=== PATIENT | male | born 1995 | race Caucasian/White ===

== ENCOUNTER 2020-10-15 20:06 | Emergency (ER) | payer OTHER ==
[~2020-10-15 20:06] MED LIST: AUGMENTIN500TAB PO; CORTISPORIN OTI10 ML AD; NO HOME MEDS
[2020-10-15] MEDS ORDERED: POTASSI19 PO (20:35)
[2020-10-15] MEDS ORDERED: VITAMI17 PO (20:35)
[2020-10-15 21:08] LABS: URINE BILIRUBIN - DIPSTICK NEGATIVE (NEGATIVE); URINE BLOOD DIPSTICK NEGATIVE (NEGATIVE); URINE COLOR YELLOW; URINE GLUCOSE - DIPSTICK NEGATIVE (NEGATIVE); URINE KETONE NEGATIVE (NEGATIVE); URINE LEUK ESTERASE NEGATIVE (NEGATIVE); URINE PROTEIN - DIPSTICK NEGATIVE (NEG-TRACE); URINE SPECIFIC GRAVITY >=1.030; URINE UROBILINOGEN - DIPSTICK 0.2 E.U./dL (0.2)
[2020-10-15 21:14] LABS: URINE NITRITE - DIPSTICK NEGATIVE (Negative)
[2020-10-15 21:23] LABS: ALBUMIN 4.8 g/dL (3.2-5.0); ALKALINE PHOSPHATASE 87 u/l (38-126); AMYLASE 64 u/l (30-110); ANION GAP 13 (6-22 (CALC)); BILIRUBIN, TOTAL 0.7 mg/dL (0.0-1.4); BUN 15 mg/dL (9-20); BUN/CREATININE RATIO 21 (12-20 (CALC)); CHLORIDE 102 mmol/l (95-108); CREATININE 0.7 mg/dL (0.7-1.3); GFR > 60 ML/MIN (>=60 (CALC)); GFR FOR AFR.AMER. > 60 ML/MIN (>=60 (CALC)); LIPASE 154 u/l (23-300); POTASSIUM 3.6 mmol/l (3.5-5.1); SGOT/AST 26 u/l (17-59); SODIUM 138 mmol/l (137-146); TOTAL PROTEIN 7.7 g/dL (6.3-8.2)
[2020-10-15 21:24] LABS: CARBON DIOXIDE 27 mmol/l (22-30)
[2020-10-15 21:26] LABS: IMMATURE GRANULOCYTES 0.4 % (0.0-5.0); MEAN CORPUSCULAR HGB 30.3 pG CALC (26.0-32.0); MEAN CORPUSCULAR HGB CONC 34.2 g/dL CAL (32.0-36.0); NEUT# 4.85 thou/uL (1.82-7.42); RED BLOOD COUNT 5.61 mill/uL (4.70-6.10); RED CELL DISTRI WIDTH 12.6 % (11.5-15.5)
[2020-10-15 21:29] LABS: HEMATOCRIT 49.7 % (39.0-50.0); MEAN CELL VOLUME 88.6 fL CALC (80.0-100.0)
[2020-10-15] MEDS ORDERED: NAPROXEN500 MG PO (22:59)
[2020-10-15 23:05] VITALS: BP 124/74
== END 2020-10-15 23:14 | disposition home or self-care (01) | DRG 392 ==
LOC: ED 20:06
PROVIDERS: Emergency Medicine
DX: R10.31 Right lower quadrant pain (principal); R10.32 Left lower quadrant pain; M79.10 Myalgia, unspecified site; E21.5 Disorder of parathyroid gland, unspecified; Z87.442 Personal history of urinary calculi
CPT/HCPCS: Q9967

== ENCOUNTER 2021-06-02 17:05 | Emergency (ER) | payer OTHER ==
[~2021-06-02] VITALS: Ht 170.2 cm; Wt 70.0 kg
[~2021-06-02 17:05] MED LIST changes: +AMOXICILLIN500 MG OR; +AMOXICILLIN500 MG PO; +LORTAB5 PO; +MIRALAX3350 NF PO; +NAPROXEN500 MG PO; +NO; +PERCOCET 5/325M1 TAB OR; +POTASSI19 PO; +VITAMI17 PO
[2021-06-02 18:36] VITALS: BP 125/74
== END 2021-06-02 18:42 | disposition home or self-care (01) | DRG 153 ==
LOC: ED 17:05
DX: J06.9 Acute upper respiratory infection, unspecified (principal); Z20.822 Contact with and (suspected) exposure to COVID-19

== ENCOUNTER 2022-01-16 22:52 | Emergency (ER) | payer OTHER ==
[~2022-01-16] VITALS: Ht 170.2 cm; Wt 77.0 kg
[2022-01-16 23:35] VITALS: BP 121/92
== END 2022-01-16 23:45 | disposition home or self-care (01) | DRG 605 ==
LOC: ED 22:52
DX: S61.212A Laceration without foreign body of right middle finger without damage to nail, initial encounter (principal); X58.XXXA Exposure to other specified factors, initial encounter

== ENCOUNTER 2022-04-16 02:33 | Emergency (ER) | payer OTHER ==
[~2022-04-16] VITALS: Ht 170.2 cm; Wt 84.0 kg
[2022-04-16 02:40] VITALS: BP 125/86
[2022-04-16 03:45] LABS: URINE BILIRUBIN - DIPSTICK NEGATIVE (NEGATIVE); URINE BLOOD DIPSTICK NEGATIVE (NEGATIVE); URINE COLOR YELLOW; URINE GLUCOSE - DIPSTICK NEGATIVE (NEGATIVE); URINE KETONE NEGATIVE (NEGATIVE); URINE LEUK ESTERASE NEGATIVE (NEGATIVE); URINE PROTEIN - DIPSTICK NEGATIVE (NEG-TRACE); URINE UROBILINOGEN - DIPSTICK 0.2 E.U./dL (0.2)
[2022-04-16 03:46] LABS: URINE NITRITE - DIPSTICK NEGATIVE (Negative)
[2022-04-16 03:46] LABS: HEMATOCRIT 46.1 % (39.0-50.0); IMMATURE GRANULOCYTES 0.1 % (0.0-5.0); MEAN CELL VOLUME 89.9 fL CALC (80.0-100.0); MEAN CORPUSCULAR HGB 31.2 pG CALC (26.0-32.0); MEAN CORPUSCULAR HGB CONC 34.7 g/dL CAL (32.0-36.0); NEUT# 4.17 thou/uL (1.82-7.42); RED BLOOD COUNT 5.13 mill/uL (4.70-6.10); RED CELL DISTRI WIDTH 12.8 % (11.5-15.5)
[2022-04-16 03:56] LABS: ALBUMIN 4.5 g/dL (3.2-5.0); ALKALINE PHOSPHATASE 104 u/l (38-126); ANION GAP 15 (6-22 (CALC)); BILIRUBIN, TOTAL 0.6 mg/dL (0.0-1.4); BUN 15 mg/dL (9-20); BUN/CREATININE RATIO 16 (12-20 (CALC)); CARBON DIOXIDE 27 mmol/l (22-30); CHLORIDE 105 mmol/l (95-108); CREATININE 0.9 mg/dL (0.7-1.3); GFR FOR AFR.AMER. > 60 ML/MIN (>=60 (CALC)); GFR OTHER RACES > 60 ML/MIN (>=60 (CALC)); SGOT/AST 31 u/l (17-59); SODIUM 142 mmol/l (137-146)
[2022-04-16 05:38] VITALS: BP 125/86
== END 2022-04-16 05:41 | disposition home or self-care (01) | DRG 392 ==
LOC: ED 02:33
PROVIDERS: Internal Medicine
DX: R10.9 Unspecified abdominal pain (principal); Z87.442 Personal history of urinary calculi

== ENCOUNTER 2022-11-25 15:29 | Emergency (ER) | payer OTHER ==
[~2022-11-25] VITALS: Ht 170.2 cm; Wt 77.1 kg
[2022-11-25] MEDS ORDERED: VITAMIN D-32000 UNI1 (16:12)
[2022-11-25 16:24] VITALS: BP 129/89
[2022-11-25 16:49] LABS: BASO% 0.7 % (0-3); EOS% 1.6 % (0-8); HEMOGLOBIN 17.8 g/dl (14.0-18.0); IMMATURE GRANULOCYTES 0.1 % (0.0-5.0); LYMPH% 21.6 % (15-41); MEAN CELL VOLUME 90.2 fL CALC (80.0-100.0); MEAN CORPUSCULAR HGB 30.7 pG CALC (26.0-32.0); MEAN CORPUSCULAR HGB CONC 34.1 g/dL CAL (32.0-36.0); MONO% 7.2 % (2-13); NEUT# 4.8 thou/uL (1.82-7.42); NEUT% 68.8 % (42-76); RED BLOOD COUNT 5.79 mill/uL (4.70-6.10); RED CELL DISTRI WIDTH 12.5 % (11.5-15.5)
[2022-11-25 16:50] LABS: URINE BILIRUBIN - DIPSTICK NEGATIVE (NEGATIVE); URINE BLOOD DIPSTICK NEGATIVE (NEGATIVE); URINE COLOR YELLOW; URINE GLUCOSE - DIPSTICK NEGATIVE (NEGATIVE); URINE KETONE NEGATIVE (NEGATIVE); URINE LEUK ESTERASE NEGATIVE (NEGATIVE); URINE PH 6.5 (4.5-8.0); URINE PROTEIN - DIPSTICK NEGATIVE (NEG-TRACE); URINE SPECIFIC GRAVITY 1.025; URINE UROBILINOGEN - DIPSTICK 0.2 E.U./dL (0.2)
[2022-11-25 16:51] LABS: URINE NITRITE - DIPSTICK NEGATIVE (Negative)
[2022-11-25 16:51] LABS: HEMATOCRIT 52.2 % (39.0-50.0)
[2022-11-25 16:58] LABS: ALKALINE PHOSPHATASE 77 u/l (38-126); ANION GAP 13 (6-22 (CALC)); BILIRUBIN, TOTAL 0.6 mg/dL (0.2-1.3); BUN 17 mg/dL (9-20); BUN/CREATININE RATIO 18 (12-20 (CALC)); CARBON DIOXIDE 28 mmol/l (22-30); CHLORIDE 106 mmol/l (95-108); GFR FOR AFR.AMER. > 60 ML/MIN (>=60 (CALC)); GFR OTHER RACES > 60 ML/MIN (>=60 (CALC)); POTASSIUM 4.4 mmol/l (3.5-5.1); SGOT/AST 29 u/l (17-59); SODIUM 143 mmol/l (137-146); TOTAL PROTEIN 7.4 g/dL (6.3-8.2)
[2022-11-25 18:29] VITALS: BP 129/89
== END 2022-11-25 18:40 | disposition home or self-care (01) | DRG 392 ==
LOC: ED 15:29
PROVIDERS: Family Medicine
DX: R10.31 Right lower quadrant pain (principal); M54.50 Low back pain, unspecified; Z87.442 Personal history of urinary calculi

== ENCOUNTER 2024-02-22 00:35 | Emergency (ER) | payer OTHER ==
[~2024-02-22] VITALS: Ht 170.2 cm; Wt 65.0 kg
[~2024-02-22 00:35] MED LIST changes: +IMODIUM2 MG PO; +PROMETHAZINE HY25 M1 PO; +VITAMIN D-32000 UNI1
[2024-02-22 00:47] VITALS: BP 142/85
[2024-02-22] MEDS ORDERED: PAROXETINE10 MG PO (00:51)
[2024-02-22] MEDS ORDERED: TAMSULOSIN HCL 0.4 MG CAP PO STA (00:51)
[2024-02-22] MEDS ORDERED: SODIUM CHLORIDE 0.9% 1,000 ML IV STA (00:51)
[2024-02-22] MEDS ORDERED: KETOROLAC TROMETHAMINE 30 MG/ML SDV IV ONE (00:55)
[2024-02-22 01:01] VITALS: BP 124/81
[2024-02-22 01:16] VITALS: BP 138/75
[2024-02-22 01:17] LABS: BASO% 0.6 % (0-3); EOS% 1.1 % (0-8); IMMATURE GRANULOCYTES 0.6 % (0.0-5.0); LYMPH% 36.5 % (15-41); MEAN CELL VOLUME 89.4 fL CALC (80.0-100.0); MEAN CORPUSCULAR HGB 30.9 pG CALC (26.0-32.0); MEAN CORPUSCULAR HGB CONC 34.6 g/dL CAL (32.0-36.0); MONO% 7.8 % (2-13); NEUT# 3.47 thou/uL (1.82-7.42); NEUT% 53.4 % (42-76); RED BLOOD COUNT 5.11 mill/uL (4.70-6.10); RED CELL DISTRI WIDTH 12.9 % (11.5-15.5)
[2024-02-22 01:22] LABS: URINE BILIRUBIN - DIPSTICK Negative (NEGATIVE); URINE BLOOD DIPSTICK Large (NEGATIVE); URINE GLUCOSE - DIPSTICK Negative (NEGATIVE); URINE KETONE Negative (NEGATIVE); URINE NITRITE - DIPSTICK Negative (Negative); URINE PROTEIN - DIPSTICK 30 mg/dL (NEG-TRACE); URINE UROBILINOGEN - DIPSTICK 0.2 E.U./dL (0.2)
[2024-02-22 01:23] LABS: HEMATOCRIT 45.7 % (39.0-50.0); HEMOGLOBIN 15.8 g/dl (14.0-18.0)
[2024-02-22 01:30] LABS: URINE COLOR Yellow
[2024-02-22 01:31] LABS: URINE BACTERIA MODERATE hpf; URINE EPITHELIAL CELLS FEW EPI/hpf (0-FEW); URINE LEUK ESTERASE Negative (NEGATIVE); URINE RBC >100 RBC/hpf (0-5)
[2024-02-22 01:32] LABS: ALBUMIN 4.7 g/dL (3.2-5.0); CREATININE 0.9 mg/dL (0.7-1.3); POTASSIUM 3.9 mmol/l (3.5-5.1); TOTAL PROTEIN 7.3 g/dL (6.3-8.2)
[2024-02-22 01:36] LABS: BILIRUBIN, TOTAL 0.6 mg/dL (0.2-1.3)
[2024-02-22 01:46] VITALS: BP 107/56
[2024-02-22 02:00] VITALS: BP 123/70
[2024-02-22] MEDS ORDERED: SULFAMETHOXAZOLE W/TRIMETHOPRI 1 COMBO TAB PO ONE (03:05)
[2024-02-22] MEDS ORDERED: BACTRIM DS1 TAB PO (03:05)
[2024-02-22 03:13] VITALS: BP 123/70
== END 2024-02-22 03:19 | disposition home or self-care (01) | DRG 690 ==
LOC: ED 00:35
PROVIDERS: Family Medicine
DX: N39.0 Urinary tract infection, site not specified (principal); R31.9 Hematuria, unspecified; Z87.442 Personal history of urinary calculi